=== PATIENT | female | born 1955 | race Caucasian/White ===

== ENCOUNTER 2023-09-07 08:45 | Day surgery (SDC) | payer OTHER ==
[~2023-09-07] VITALS: Ht 162.6 cm; Wt 93.0 kg
[2023-09-07 09:30] VITALS: O2SAT 97
[2023-09-07] MEDS ORDERED: MIDAZOLAM HCL 5 MG/5 ML VIAL ONE (09:38)
[2023-09-07] MEDS ORDERED: MEPERIDINE 100 MG INJ. 100 MG/ML VIAL ONE (09:38)
[2023-09-07] MEDS ORDERED: fentaNYL CITRATE/PF 100 MCG/2 ML AMP ONE (09:38)
[2023-09-07 12:33] VITALS: BP_SYST 128; PULSE 72; RESP 16; TEMP 98.2
== END 2023-09-07 11:06 | disposition home or self-care (01) ==
LOC: SDS 08:45 → SMU 08:46 → SDS 11:06
PROVIDERS: ATTEND Internal Medicine
DX: R10.31 Right lower quadrant pain (principal); D12.2 Benign neoplasm of ascending colon; K63.89 Other specified diseases of intestine; K57.30 Diverticulosis of large intestine without perforation or abscess without bleeding; K64.8 Other hemorrhoids; I10 Essential (primary) hypertension; E78.5 Hyperlipidemia, unspecified; Z95.1 Presence of aortocoronary bypass graft; Z95.0 Presence of cardiac pacemaker; Z79.84 Long term (current) use of oral hypoglycemic drugs; Z79.899 Other long term (current) drug therapy; Z98.890 Other specified postprocedural states; Z87.891 Personal history of nicotine dependence; Z86.010 Personal history of colon polyps
CPT/HCPCS: 45380; 45385; 99152; 82948; 88305; G0378; J2250; J2175; J3010